=== PATIENT | female | born 1975 | race Caucasian/White ===

== ENCOUNTER 2018-08-26 10:22 | Day surgery (SDC) | payer MEDICAID, OTHER ==
[~2018-08-26 10:22] MED LIST: ACETAMINOPHEN 1,000 MG/100 ML INJ IV ONE; BUPIV. HCL 0.25% (2.5MG/ML)/EPI. (1:200,000) PF 30 ML VIAL IJ ONE; CLINDAMYCIN PHOSPHATE 900 MG/6 ML VIAL ONE; DEXAMETHASONE SOD PHOS 4 MG/ML VIAL ONE; FAMOTIDINE 20 MG/2 ML VIAL ONE; FENTANYL CITRATE/PF 250 MCG/5 ML INJ. ONE; LACTATED RINGERS 1,000 ML IV.SOLN IV ONE; LIDOCAINE HCL 1% PF 300MG/30ML VIAL ONE; LIDOCAINE HCL 2% PF 100MG/5ML VIAL IJ ONE; MIDAZOLAM HCL 2 MG/2 ML VIAL ONE; ONDANSETRON HCL/PF 4 MG/ 2ML VIAL ONE; PROPOFOL 200 MG/20 ML VIAL IV ONE; ROCURONIUM BROMIDE 10 MG/ML 5ML VIAL ONE; SCOPOLAMINE HYDROBROMIDE 1.5MG/72HR PATCH TD ONE; SEVOFLURANE 250 ML LIQUID IH ONE; SODIUM CHLORIDE IRRIG SOLUTION 3,000 ML IRRIG.SOLN IR ONE; SUGAMMADEX SODIUM 200 MG/2 ML VIAL IV ONE
[2018-08-26] MEDS ORDERED: LACTATED RINGERS 1,000 ML IV ONE (10:56)
[2018-08-26] MEDS ORDERED: ENOXAPARIN SODIUM 40 MG/0.4 ML DISP.SYRIN SQ ONE (10:56)
[2018-08-26] MEDS ORDERED: FAMOTIDINE 20 MG/2 ML VIAL ONE (10:56)
[2018-08-26] MEDS ORDERED: SCOPOLAMINE HYDROBROMIDE 1.5MG/72HR PATCH TD ONE (10:56)
== END 2018-08-26 15:11 | disposition other institution (70) ==
LOC: OPSURG 10:22
PROVIDERS: ATTEND Surgery
DX: E66.01 Morbid (severe) obesity due to excess calories (principal); Z68.43 Body mass index [BMI] 50.0-59.9, adult; E11.9 Type 2 diabetes mellitus without complications; M19.90 Unspecified osteoarthritis, unspecified site
CPT/HCPCS: 43235; 81025; J1100; J1650; J2001; J2250; J2405; J2704; 43775; A9270-GY; J7120

== ENCOUNTER 2018-08-26 15:12 | Inpatient (IN) | payer MEDICAID, OTHER ==
[2018-08-26] MEDS ORDERED: 0.9 % SODIUM CHLORIDE 1,000 ML IV ONE (15:15)
[2018-08-26] MEDS ORDERED: PROMETHAZINE HCL 25 MG in 0.9 % SODIUM CHLORIDE 50 ML IV PRN (15:17)
[2018-08-26] MEDS ORDERED: MORPHINE SULFATE 10 MG/ML VIAL IVP PRN (15:17)
[2018-08-26] MEDS ORDERED: LEVALBUTEROL HCL 1.25 MG/3 ML AMPUL.NEB NEB PRN (15:17)
--- NOTE | 2018-08-26 15:33 | History and Physical Report ---
History of Present Illnes - History of Present Illness Reason for Visit: S/P Gastric Sleeve History of Present Illness: Patient is a 43-year-old white female who has tried multiple diets including Weight Watchers, Mckay, Low Carb, Slim Fast, Medications, and exercise programs with no success. Patient and surgeon decided to proceed with gastric sleeve procedure. Procedure went well without complications- patient will be admitted and monitored s/p surgical intervention. - Past Medical History Cardiac: HTN (not on any medication) Pulmonary: Asthma (controlled) [employer]: denies: Dementia, Seizure Gastrointestinal: GERD (On omeprazole) Heme/Onc: denies: Anemia NOS, Iron deficiency anemia Hepatobiliary: denies: Hep A/B/C Psych: denies: Anxiety, Depression Musculoskeletal: Osteoarthritis (hips, knees, ) Rheumatologic: denies: Fibromyalgia, Rheumatoid arthritis Infectious Disease: denies: HIV ENT: denies: Sinusitis Renal/: UTI. denies: Acute renal failure Endocrine: Diabetes, obesity Dermatology: denies: Eczema, Cellulitis Grav: 4 Para: 3 Ab: 1 - Past Surgical History Past Surgical History: Cholecystectomy, , Hysterectomy, Other (ENT) - Past Family History Mother Family History: CVA Father Family History: DM - Past Social History Smoke: Quit (20 years ago) Alcohol: Rare Drugs: None Lives: With Family Domestic Violence: Negative - Health Maintenance Health Maintenance: Mammogram. denies: Influenza Vaccine, Pneumococcal Vaccine Influenza Vaccine: Patient Refused Pneumonia Vaccine: No Resuscitation Status: Resusciation Status Resuscitation Status Full Code - Unable to Obtain History Unable to Obtain: No Review of Systems - Review of Systems Constitutional: negative: Fever, Chills Eyes: negative: pain, vision change ENT: negative: Ear Pain, Nose Pain, Throat Pain Respiratory: negative: Cough, Shortness of Breath, Wheezing Cardiovascular: negative: Chest Pain Gastrointestinal: Nausea, Abdominal Pain (S/P gastric sleeve). negative: Vomiting Genitourinary: negative: Dysuria Musculoskeletal: Shoulder Pain, Back Pain (S/P gastric sleeve) Skin: negative: Rash Neurological: negative: Confusion (drowsy) - Medications/Allergies Allergies/Adverse Reactions: Allergies Allergy/AdvReac Type Severity Reaction Status Date / Time Penicillins Allergy Verified 08/26/18 15:15 Home Medications: Home Medications Metformin HCl 500 mg PO BID 08/26/18 Omeprazole 20 mg PO DAILY 08/26/18 Current Inpatient Medications: Current Inpatient Medications Clindamycin Phosphate (Clindamycin-D5w 600 Mg/50 Ml) 600 mg IV Q8 [facility] Stop: 08/27/18 05:01 Enoxaparin Sodium (Lovenox) 40 mg SQ QD [facility] Stop: 09/10/18 10:59 Famotidine (Pepcid) 20 mg IVP BID [facility] Stop: 08/27/18 20:59 Sodium Chloride (Normal Saline) 1,000 mls @ 150 mls/hr IV Q8H [facility] Stop: 08/27/18 15:29 Promethazine HCl 25 mg/ Sodium (Chloride) 51 mls @ 600 mls/hr IV Q6 PRN PRN Reason: Nausea / Vomiting Stop: 08/30/18 15:16 Ketorolac Tromethamine (Toradol) 30 mg IVP Q6 PRN PRN Reason: For Mild Pain Stop: 08/30/18 15:16 Levalbuterol HCl (Xopenex) 1.25 mg NEB Q4 PRN PRN Reason: SOA, Dyspnea, or Wheezing Stop: 08/30/18 15:16 Miscellaneous (Chem Sticks) 1 each MC Q6H [facility] Morphine Sulfate (Morphine Sulfate) 4 mg IVP Q4 PRN PRN Reason: Severe Pain Stop: 08/27/18 15:16 Ondansetron HCl (Zofran 4 Mg/2 Ml) 4 mg IVP Q6H PRN PRN Reason: Nausea / Vomiting Stop: 08/30/18 15:16 Exam - Exam General: Alert (drowsy- arouses easily), Oriented to Person, Oriented to Place, Morbidly Obese HEENT: Atraumatic, PERRLA, Mouth Mucous membr. moist/[place], Nose Mucous membr. moist/[place] Neck: Normal Range of Motion. No: Stridor Lungs: Clear to auscultation, Normal air movement. No: Wheezes, Rales Cardiovascular: Regular rate, Normal S1, Normal S2 Abdomen: Soft, Other (tender on palpation- s/p gastric sleeve), Decreased Bowel Sounds. No: Distended, Rigid Integumentary: [place], Warm, Dry, Other (incisions x 5) Extremities: No edema, Normal pulses, No tenderness/swelling Neurological: Strength Equal Bilat, Sensation intact Psych/Mental Status: Mental status NL, Appropriate Affect Assessment/Plan - Assessment/Plan (1) S/P gastric surgery Status: Acute Current Visit: Yes Assessment: LCTA, HRRR, Skin is PWD, hypo bowel sounds, no tenderness/pain to lower extremities Plan: Plan is to have patient up and walking frequently, SCDs while in bed, Lovenox daily, IVF until patient tolerates PO, pain and nausea control, IV PPI, and the use of incentive spirometer to prevent resp. illness (2) Morbid obesity due to excess calories Status: Acute Current Visit: Yes Assessment: S/P Gastric Sleeve (3) GERD (gastroesophageal reflux disease) Status: Acute Current Visit: Yes Qualifiers: Esophagitis presence: without esophagitis Qualified Code(s): K21.9 - Gastro-esophageal reflux disease without esophagitis Assessment: Stable on home meds Plan: Will use PPI IV (4) Osteoarth NOS-other site Status: Acute Current Visit: Yes Assessment: Stable on home meds (5) Non-insulin dependent type 2 diabetes mellitus Status: Acute Current Visit: Yes Assessment: Will monitor for hypo/hyperglycemic sx's Plan: Will hold metformin and check blood sugars every 6 hours VTE Assessment - RISK FACTOR SCORE VTE RISK FACTOR SCORES: AGE 40-60 YEARS, OBESITY, MAJOR SURGERY/ANESTHESIA TIME > 1 HOUR (Will give Lovenox daily, ambulate frequently & SCDs while in bed)
[2018-08-26 16:04] VITALS: BMI 50.8
[2018-08-26] MEDS ORDERED: MORPHINE SULFATE 5 MG/ML ML IV PRN (16:34)
[2018-08-26] MEDS: 0.9 % SODIUM CHLORIDE 1,000 ML IV SCH (17:24)
[2018-08-26] MEDS: CLINDAMYCIN PHOSPHATE/D5W 600 MG/50 ML PIGGYBACK IV SCH (20:30)
[2018-08-26] MEDS: FAMOTIDINE 20 MG/2 ML VIAL IVP SCH (20:34)
[2018-08-26] MEDS: ONDANSETRON HCL/PF 4 MG/ 2ML VIAL IVP PRN (20:36)
[2018-08-26] MEDS: KETOROLAC TROMETHAMINE 30 MG/1ML VIAL IVP PRN (21:00)
[2018-08-27] MEDS: 0.9 % SODIUM CHLORIDE 1,000 ML IV SCH ×2 (00:48→08:31)
[2018-08-27] MEDS: HYDROcodone /APAP 10/325 1 EACH TABLET PO PRN ×3 (01:26→12:45)
[2018-08-27] MEDS: CLINDAMYCIN PHOSPHATE/D5W 600 MG/50 ML PIGGYBACK IV SCH (04:07)
[2018-08-27] MEDS: KETOROLAC TROMETHAMINE 30 MG/1ML VIAL IVP PRN ×3 (04:19→22:14)
[2018-08-27] MEDS: FAMOTIDINE 20 MG/2 ML VIAL IVP SCH (08:31)
--- NOTE | 2018-08-27 08:57 | Inpatient Progress Note ---
Subjective - Required Recertification Statement I anticipate X number of days because-include discharge plan: 1 - Review of Systems Subjective: Patient doing well. Tolerating liquids. Feels she has to have a BM. Ambulating well. Objective - Exam Vitals and I&O: Vital Signs Temp 97.3 F L 08/27/18 06:00 Pulse 97 H 08/27/18 06:00 Resp 14 08/27/18 06:00 BP 149/86 08/27/18 06:00 Pulse Ox 94 08/27/18 06:00 Intake & Output 08/26/18 08/26/18 08/27/18 11:59 23:59 11:59 Intake Total 120 1680 Output Total 500 700 Balance -380 980 Weight 130.181 kg Intake: IV 1650 right ac 1650 Oral 120 30 Output: Urine 500 700 Other: Voiding Method Toilet Toilet # Voids 2 1 General: Alert, Oriented to Person, Oriented to Place, Oriented to Time, Cooperative Lungs: Clear to auscultation, Normal air movement, Speaks full Sentences Cardiovascular: Regular rate Abdomen: Normal bowel sounds, Soft, No tenderness, Other (Bandaged C/D/I) Assessment/Plan - Assessment/Plan (1) Non-insulin dependent type 2 diabetes mellitus Status: Acute Current Visit: Yes Plan: BS improved today. Follow SSI. Continue to watch BS. (2) S/P gastric surgery Status: Acute Current Visit: Yes Plan: Continue ambulation and IS. IVF and pain control.
[2018-08-27] MEDS: INSULIN LISPRO 100 UNIT/ML 3ML VIAL SQ SCH ×3 (12:00→21:21)
[2018-08-27] MEDS: ENOXAPARIN SODIUM 40 MG/0.4 ML DISP.SYRIN SQ SCH (12:45)
[2018-08-27] MEDS ORDERED: KETOROLAC TROMETHAMINE 60 MG/2 ML VIAL ONE (16:13)
[2018-08-27] MEDS: ONDANSETRON HCL/PF 4 MG/ 2ML VIAL IVP PRN (22:22)
[2018-08-28] MEDS: INSULIN LISPRO 100 UNIT/ML 3ML VIAL SQ SCH (07:54)
--- NOTE | 2018-08-28 07:56 | Discharge Summary ---
Discharge Summary - Discharge Sumary History of Present Illness: Patient is a 43-year-old white female who has tried multiple diets including Weight Watchers, Mckay, Low Carb, Slim Fast, Medications, and exercise programs with no success. Patient and surgeon decided to proceed with gastric sleeve procedure. Procedure went well without complications- patient will be admitted and monitored s/p surgical intervention. Condition at Discharge: Stable Home Medications: Ambulatory Orders Medication Instructions Recorded Metformin HCl 500 mg PO BID 08/26/18 Omeprazole 20 mg PO DAILY 08/26/18 Consultations this Visit: None Procedures this Visit: None Allergies/Adverse Reactions: Allergies Allergy/AdvReac Type Severity Reaction Status Date / Time Penicillins Allergy Verified 08/26/18 15:15 Patient Problems: Current Active Problems Problem Status Onset GERD (gastroesophageal reflux disease) Acute Morbid obesity due to excess calories Acute Non-insulin dependent type 2 diabetes mellitus Acute Osteoarth NOS-other site Acute S/P gastric surgery Acute Hospital Course: Patient did well post-op. Ambulation, SCD, IS, lovenox utilized. BS remained less than 140. Will hold metformin and watch. Tolerated diet advance. Discharged home in good condition.
[2018-08-28 08:57] VITALS: BP 164/105
[2018-08-28] MEDS: HYDROcodone /APAP 10/325 1 EACH TABLET PO PRN (10:59)
[2018-08-28] MEDS: ENOXAPARIN SODIUM 40 MG/0.4 ML DISP.SYRIN SQ SCH (11:22)
== END 2018-08-28 11:25 | disposition home or self-care (01) | DRG 641 ==
LOC: SOUTH 15:12
PROVIDERS: ADMIT Nurse Practitioner Family; ATTEND Nurse Practitioner Family
DX: E66.01 Morbid (severe) obesity due to excess calories (principal); Z68.43 Body mass index [BMI] 50.0-59.9, adult; E11.9 Type 2 diabetes mellitus without complications; K21.9 Gastro-esophageal reflux disease without esophagitis; M19.90 Unspecified osteoarthritis, unspecified site
CPT/HCPCS: 99231; 99232; 99238; J1650; J1885; J2405; J2550; J7030; S1016